=== PATIENT | female | born 1980 | race Two or more races ===

== ENCOUNTER 2020-01-05 16:57 | Emergency (ER) | payer MEDICAID ==
[~2020-01-05] VITALS: Ht 177.8 cm; Wt 108.9 kg
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
[2020-01-05] MEDS ORDERED: Tetanus/Diptheria/Pertussis IM ONE (18:00)
[2020-01-05] MEDS ORDERED: Lidocaine 1% MPF 10mg/ml 5ml INJ ONE (18:00)
[2020-01-05] MEDS ORDERED: Azithromycin 250mg tab ORAL ONE (18:00)
[2020-01-05] MEDS ORDERED: metroNIDAZOLE 500mg tab ORAL ONE (18:00)
[2020-01-05] MEDS ORDERED: Dolutegravir Sodium 50mg tab ORAL ONE (18:15)
--- NOTE | 2020-01-05 18:20 | NUR ---
ED Nurse Note: Patient tolerating fluids and medications well. No s/s of acute distress. Boyfriend at bedside.
[2020-01-05 18:24] LABS: BASOPHILS % (AUTO) 0.9 % (0.0-2.0); EOSINOPHILS % (AUTO) 0.4 % (0.0-3.0); HEMOGLOBIN 14.5 G/DL (12.0-16.0); LYMPHOCYTES % (AUTO) 23.7 % (20.0-45.0); MEAN CORPUSCULAR VOLUME 90 FL (80-99); MONOCYTES % (AUTO) 6.8 % (1.0-10.0); NEUTROPHILS % (AUTO) 68.3 % (45.0-75.0); PLATELET COUNT 157 K/UL (150-450); RED CELL DISTRIBUTION WIDTH 14.1 % (11.6-14.8); WHITE BLOOD COUNT 13.5 K/UL (4.8-10.8)
[2020-01-05 18:30] LABS: ANION GAP 13 mmol/L (5-15); BLOOD UREA NITROGEN 14 mg/dL (7-18); CALCIUM 8.8 MG/DL (8.5-10.1); CARBON DIOXIDE 24 MMOL/L (21-32); CHLORIDE 106 MMOL/L (98-107); CREATININE 0.8 MG/DL (0.55-1.30); POTASSIUM 3.3 MMOL/L (3.5-5.1); SODIUM 143 MMOL/L (136-145)
[2020-01-05 18:34] LABS: APPEARANCE,URINE CLOUDY; BILIRUBIN, URINE 1+ (NEGATIVE); GLUCOSE, URINE (UA) NEGATIVE (NEGATIVE); KETONES,URINE 2+ (NEGATIVE); LEUKOCYTE ESTERASE ,URINE 2+ (NEGATIVE); NITRITE,URINE NEGATIVE (NEGATIVE); PH,URINE 6 (4.5-8.0); PROTEIN,URINE 3+ (NEGATIVE); UROBILINOGEN,URINE 4 MG/DL (0.0-1.0)
[2020-01-05 18:38] LABS: ALANINE AMINOTRANSFERASE 337 U/L (12-78); ALBUMIN 3.8 G/DL (3.4-5.0); ALBUMIN/GLOBULIN RATIO 1.2 (1.0-2.7); ALKALINE PHOSPHATASE 53 U/L (46-116); ASPARTATE AMINO TRANSFERASE 1130 U/L (15-37)
[2020-01-05 18:41] LABS: COLOR,URINE YELLOW
--- NOTE | 2020-01-05 19:10 | NUR ---
HAND-OFF: Report given to Jaclyn CASTELLON.
[2020-01-05] MEDS ORDERED: cefTRIAXone 1 GM in NS 55 ML IVPB ONE (19:15)
[2020-01-05 19:29] VITALS: BP 100/63
[2020-01-05 19:30] VITALS: BP 105/68
--- NOTE | 2020-01-05 20:34 | NUR ---
ED Nurse Note: [employer] at bedside
[2020-01-05] MEDS ORDERED: CEPHALEXIN500 MG ORAL (21:24)
[2020-01-05 21:30] VITALS: BP 105/68
[2020-01-05] MEDS ORDERED: LORazepam Inj 2mg/ml 1ml IV ONE (21:30)
[2020-01-05 23:10] VITALS: BP 100/63
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
== END 2020-01-05 23:10 | disposition home or self-care (01) ==
LOC: EDBD 16:57 → EMR 17:32
DX: N39.0 Urinary tract infection, site not specified (principal); R79.89 Other specified abnormal findings of blood chemistry; R31.9 Hematuria, unspecified; F19.10 Other psychoactive substance abuse, uncomplicated; F20.9 Schizophrenia, unspecified; Y09 Assault by unspecified means; R00.0 Tachycardia, unspecified
CPT/HCPCS: 36415; 80053; 80307; 81003; 81025; 83690; 84484; 85025; 87086; 87181; 90471; 90715; 93005; 96361; 96365; 96372; 96375; G0480; G0481; J0696; J7030; Q0144; Z7502; 99284